=== PATIENT | male | born 1975 | race Caucasian/White ===

== ENCOUNTER 2016-12-10 08:08 | Emergency (ER) | payer MEDICAID ==
[~2016-12-10] VITALS: Ht 180.3 cm; Wt 76.0 kg
[~2016-12-10 08:08] MED LIST: Z.0.NO CURRENT MEDS
[2016-12-10 08:09] VITALS: BP 140/89; PULSE 61; RESP 16; TEMP 97.9; O2SAT 98
[2016-12-10] MEDS ORDERED: BUPR1SUB SL (08:23)
[2016-12-10 08:24] VITALS: BP 130/85; PULSE 60; RESP 16; O2SAT 99
[2016-12-10 08:46] VITALS: O2SAT 99
--- NOTE | 2016-12-10 09:04 | PD ---
HPI Chief Complaint: Abdominal Pain Time Seen by Provider: 08:54 Travel History International Travel<30 days: No Contact w/Intl Traveler<30days: No Traveled to known affect area: No History of Present Illness HPI This patient has had some bright red rectal bleeding for the last 2 days. He's had some intermittent abdominal cramping for the last one month. Denies vomiting or diarrhea or fever. No abdominal surgeries or history of medical problems. No alleviating factors. He is currently not having pain now. When he had pain was in the epigastric region. Symptoms severity is moderate PFSH Past Medical History Diminished Hearing: No Hepatitis: Yes (HEP C AND HPV) Musculoskeletal: Yes (HX CHRONIC BACK PAIN FROM [place]) Tetanus Vaccination: < 5 Years Influenza Vaccination: No Past Surgical History Ear Surgery: Yes (TUBES IN CHILDHOOD) Social History Alcohol Use: No Tobacco Use: No Substance Use: Yes (IV DRUGS, CRACK) Allergies-Medications (Allergen,Severity, Reaction): Coded Allergies: Bactrim (Verified Allergy, Mild, 12/10/16) Biaxin (Verified Allergy, Mild, 12/10/16) Penicillin (Verified Allergy, Mild, 12/10/16) Reported Meds & Prescriptions Reported Meds & Active Scripts Active Reported Zubsolv (Buprenorphine-Naloxone) 5.7-1.4 Mg Subl 1 Tab SL BID Review of Systems General / Constitutional: No: Fever Eyes: No: Visual changes HENT: No: Headaches Cardiovascular: No: Chest Pain or Discomfort Respiratory: No: Shortness of Breath Gastrointestinal: Positive: Abdominal Pain, Hematochezia Genitourinary: No: Dysuria Musculoskeletal: No: Pain Skin: No Rash Neurologic: No: Weakness Psychiatric: No: Depression Endocrine: No: Polydipsia Hematologic/Lymphatic: No: Easy Bruising Physical Exam Narrative GENERAL: Well-nourished, well-developed patient in no apparent distress. SKIN: Focused skin assessment reveals no rash and nodules. Skin is Warm and dry. HEAD: Atraumatic. Normocephalic. EYES: Pupils equal and round. No scleral icterus. No injection or drainage. ENT: No nasal bleeding or discharge. Mucous membranes pink and moist. NECK: Trachea midline. No JVD. CARDIOVASCULAR: Regular rate and rhythm. No murmur appreciated. RESPIRATORY: No accessory muscle use. Clear to auscultation. Breath sounds equal bilaterally. GASTROINTESTINAL: Abdomen soft, non-tender, nondistended. Hepatic and splenic margins not palpable. MUSCULOSKELETAL: No obvious deformities. No clubbing. No cyanosis. No edema. NEUROLOGICAL: Awake and alert. No obvious cranial nerve deficits. Motor grossly within normal limits. Normal speech. PSYCHIATRIC: Appropriate mood and affect; insight and judgment normal. Data Data Last Documented VS Vital Signs Date Time Temp Pulse Resp B/P Pulse Ox O2 Delivery O2 Flow Rate FiO2 12/10/16 08:46 99 Room Air 12/10/16 08:24 60 16 130/85 12/10/16 08:09 97.9 Orders Urinalysis - C+S If Indicated (12/10/16 08:35) Iv Access Insert/Monitor (12/10/16 08:35) Oxygen Administration (12/10/16 08:35) Oximetry (12/10/16 08:35) Lipase (12/10/16 08:35) Complete Blood Count With Diff (12/10/16 08:35) Comprehensive Metabolic Panel (12/10/16 08:35) Prothrombin Time / Inr (Pt) (12/10/16 08:35) Act Partial Throm Time (Ptt) (12/10/16 08:35) Ecg Monitoring (12/10/16 08:35) Type And Screen (12/10/16 08:35) Labs Laboratory Tests Test 12/10/16 08:45 White Blood Count 6.5 TH/MM3 Red Blood Count 4.89 MIL/MM3 Hemoglobin 14.8 GM/DL Hematocrit 42.8 % Mean Corpuscular Volume 87.6 FL Mean Corpuscular Hemoglobin 30.2 PG Mean Corpuscular Hemoglobin 34.5 % Concent Red Cell Distribution Width 13.4 % Platelet Count 237 TH/MM3 Mean Platelet Volume 7.7 FL Neutrophils (%) (Auto) 64.4 % Lymphocytes (%) (Auto) 22.5 % Monocytes (%) (Auto) 10.3 % Eosinophils (%) (Auto) 1.7 % Basophils (%) (Auto) 1.1 % Neutrophils # (Auto) 4.2 TH/MM3 Lymphocytes # (Auto) 1.5 TH/MM3 Monocytes # (Auto) 0.7 TH/MM3 Eosinophils # (Auto) 0.1 TH/MM3 Basophils # (Auto) 0.1 TH/MM3 CBC Comment DIFF FINAL Differential Comment Prothrombin Time 10.7 SEC Prothromb Time International 1.0 RATIO Ratio Activated Partial 25.5 SEC Thromboplast Time Urine Color YELLOW Urine Turbidity CLEAR Urine pH 6.0 Urine Specific [place] 1.031 Urine Protein TRACE mg/dL Urine Glucose (UA) NEG mg/dL Urine Ketones NEG mg/dL Urine Occult Blood NEG Urine Nitrite NEG Urine Bilirubin NEG Urine Urobilinogen 2.0 MG/DL Urine Leukocyte Esterase NEG Urine WBC LESS THAN 1 /hpf Microscopic Urinalysis Comment CULT NOT INDICATED Sodium Level 138 MEQ/L Potassium Level 4.3 MEQ/L Chloride Level 105 MEQ/L Carbon Dioxide Level 26.8 MEQ/L Anion Gap 6 MEQ/L Blood Urea Nitrogen 23 MG/DL Creatinine 0.68 MG/DL Estimat Glomerular Filtration 130 ML/MIN Rate Random Glucose 98 MG/DL Calcium Level 8.7 MG/DL Total Bilirubin 0.4 MG/DL Aspartate Amino Transf 150 U/L (AST/SGOT) Alanine Aminotransferase 272 U/L (ALT/SGPT) Alkaline Phosphatase 54 U/L Total Protein 7.1 GM/DL Albumin 3.5 GM/DL Lipase 160 U/L Blood Type O POSITIVE Antibody Screen NEGATIVE Blood Bank Comment MDM Medical Decision Making Medical Screen Exam Complete: Yes Emergency Medical Condition: Yes Medical Record Reviewed: Yes Differential Diagnosis Internal hemorrhoid, colitis, irritable bowel syndrome Narrative Course I have reviewed the patient's electronic medical record. IV placed CBC is normal with hemoglobin of 14.8 Metabolic profile is normal Type and screen was done Coagulation studies are normal Abdomen is soft and benign and nontender. His vital signs and exam are normal He did have some bright red rectal bleeding but stable for outpatient GI follow- up We discussed colonoscopy Diagnosis Primary Impression: Hematochezia Additional Impression: Abdominal pain Qualified Code: R10.13 - Epigastric pain Disposition: 01 DISCHARGE HOME Condition: Stable Haile Humphrey MD Dec 10, 2016 09:04
[2016-12-10 09:14] LABS: BLOOD, URINE NEG (NEG); GLUCOSE,URINE NEG (NEG); KETONE, URINE NEG (NEG); NITRITE,URINE NEG (NEG); URINE COLOR YELLOW (YELLW/STRAW)
[2016-12-10 09:17] LABS: AUTOMATED NEUTROPHIL # 4.2 TH/MM3 (1.8-7.7); BASOPHIL # 0.1 TH/MM3 (0-0.2); BASOPHIL % 1.1 % (0.0-2.0); EOSINOPHIL # 0.1 TH/MM3 (0-0.4); EOSINOPHIL % 1.7 % (0.0-4.0); HEMATOCRIT 42.8 % (39.0-51.0); HEMO FLAGS DIFF FINAL; LYMPH % 22.5 % (9.0-44.0); LYMPHOCYTE # 1.5 TH/MM3 (1.0-4.8); MEAN CELL VOLUME 87.6 FL (80.0-100.0); MEAN CORPUSCULAR HEMOGLOBIN 30.2 PG (27.0-34.0); MEAN CORPUSCULAR HGB CONC 34.5 % (32.0-36.0); MONO % 10.3 % (0.0-8.0); NEUT % 64.4 % (16.0-70.0); PLATELET COUNT 237 TH/MM3 (150-450); RED BLOOD COUNT 4.89 MIL/MM3 (4.50-5.90); RED CELL DISTRIBUTION WIDTH 13.4 % (11.6-17.2); WHITE BLOOD COUNT 6.5 TH/MM3 (4.0-11.0)
[2016-12-10 09:19] LABS: COMMENT (UR) CULT NOT INDICATED; CULTURE IF INDICATED CULT NOT INDICATED
[2016-12-10 09:27] LABS: APTT (PATIENT) 25.5 SEC (24.3-30.1); PROTHROMBIN TIME - PATIENT 10.7 SEC (9.8-11.6)
[2016-12-10 09:34] LABS: ALKALINE PHOSPHATASE 54 U/L (45-117); ALT (GPT) 272 U/L (12-78); ANION GAP 6 MEQ/L (5-15); AST (GOT) 150 U/L (15-37); BICARBONATE 26.8 MEQ/L (21.0-32.0); BLOOD UREA NITROGEN 23 MG/DL (7-18); CHLORIDE 105 MEQ/L (98-107); GLOMERULAR FILTRATION RATE 130 ML/MIN (>89); POTASSIUM 4.3 MEQ/L (3.5-5.1); SODIUM (NA) 138 MEQ/L (136-145); TOTAL BILIRUBIN ADULT 0.4 MG/DL (0.2-1.0)
[2016-12-10 11:56] VITALS: BP 124/78
== END 2016-12-10 11:57 | disposition home or self-care (01) ==
LOC: NEPE 08:08
DX: K92.1 Melena (principal); R10.13 Epigastric pain
CPT/HCPCS: 80053; 81001; 83690; 85025; 85610; 85730; 86850; 86900; 86901; 99283

== ENCOUNTER 2017-03-03 15:39 | Emergency (ER) | payer MEDICAID ==
[~2017-03-03 15:39] MED LIST changes: +BUPR1SUB SL; -Z.0.NO CURRENT MEDS
[2017-03-03 15:41] VITALS: BP 174/96; PULSE 66; RESP 20; TEMP 98; O2SAT 98
--- NOTE | 2017-03-03 16:02 | PD ---
Physical Exam Time Seen by Provider: 16:01 Narrative 41 year old male who is right handed presents to ED for evaluation of nail stuck in Left hand. Happened at home approximately 40 minutes ago. Severe pain. Up to date on tetanus Data Data Last Documented VS Vital Signs Date Time Temp Pulse Resp B/P (MAP) Pulse Ox O2 Delivery O2 Flow Rate FiO2 03/03/17 18:44 64 16 132/75 (94) 99 03/03/17 15:41 98.0 Room Air Orders Orders Hand, Complete ([id number]) (03/03/17 ) Iv Access Insert/Monitor (03/03/17 17:00) Morphine Inj (Morphine Inj) (03/03/17 17:00) Lidocaine 1% Inj (50 Ml) (Xylocaine 1% I (03/03/17 17:00) Clindamycin Inj (Cleocin Inj) (03/03/17 17:15) Ondansetron Inj (Zofran Inj) (03/03/17 17:30) Ondansetron Inj (Zofran Inj) (03/03/17 17:25) Acetamin-Hydrocod 325-5 Mg ([place] 5-325 (03/03/17 18:30) Wound Care (03/03/17 18:22) MDM Medical Record Reviewed: Yes Supervised Visit with TRACE: No Scripts Mupirocin Topical (Bactroban Topical) 22 Gm Cream 1 APPLIC TOPICAL TID for Mgmt Bacterial Infection for 7 Days, #1 TUBE 0 Refills Prov: Syeda Walter MD 03/03/17 Ibuprofen (Ibuprofen) 800 Mg Tab 800 MG PO Q8H Y for Pain/Inflammation, #21 TAB 0 Refills Prov: Syeda Walter MD 03/03/17 Clindamycin (Clindamycin) 150 Mg Cap 450 MG PO Q6H for Infection for 10 Days, #120 CAP 0 Refills Prov: Syeda Walter MD 03/03/17 Condition: Stable Aida Callaway Mar 03, 2017 16:02
--- NOTE | 2017-03-03 16:15 | RADRPT ---
EXAM DATE/TIME: 03/03/2017 16:19 [place] COMPARISON: No previous studies available for comparison. INDICATIONS : Left hand pain. Patient shot a nail into palm of hand. MEDICAL HISTORY : None. SURGICAL HISTORY : None. ENCOUNTER: Initial ACUITY: 1 day PAIN SCORE: 10/10 LOCATION: Left hand. FINDINGS: There is a nail in the palm of the hand confined to the soft tissues. There is no evidence of acute f racture. CONCLUSION: 1. Foreign body in the soft tissues Richard Rodriguez MD on March 03, 2017 at 16:13 Board Certified Radiologist. This report was verified electronically.
[2017-03-03] MEDS ORDERED: MORPHINE SULFATE 4 MG/ML INJ IV PUSH ONE (17:00)
[2017-03-03] MEDS ORDERED: LIDOCAINE HCL 1% 50 ML VIAL INFIL ONE (17:00)
[2017-03-03] MEDS ORDERED: CLINDAMYCIN INJ 900 MG in SODIUM CHLORIDE 0.9% INJ 100 ML IV ONE (17:15)
[2017-03-03] MEDS ORDERED: ONDANSETRON HCL 4 MG/2 ML VIAL ONE (17:25)
[2017-03-03] MEDS ORDERED: ONDANSETRON HCL 4 MG/2 ML VIAL IV PUSH ONE (17:30)
[2017-03-03] MEDS ORDERED: MUPI2%T TOPICAL (18:22)
[2017-03-03] MEDS ORDERED: IBUP800T23 PO (18:22)
[2017-03-03] MEDS ORDERED: CLIN1CAP5 PO (18:22)
[2017-03-03] MEDS ORDERED: ACETAMINOPHEN/HYDROcodone 325 MG/5 MG TAB PO ONE (18:30)
--- NOTE | 2017-03-03 18:30 | PD ---
HPI Chief Complaint: Injury Time Seen by Provider: 17:03 Travel History International Travel<30 days: No Contact w/Intl Traveler<30days: No History of Present Illness HPI 41-year-old right-hand dominant male presents to the ED for evaluation of injury to the left hand. Patient states that he was working with a nail gun approximately 40 minutes prior to arrival when a nail punctured his left palm. He came immediately to the ED. He endorses pain with attempted range of motion , denies numbness, tingling, weakness. He states his last tetanus shot was 2 years ago. States the nail is 1-1/4 inch, made of aluminum with no coating. 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) Allergies-Medications (Allergen,Severity, Reaction): Coded Allergies: clarithromycin (Verified Allergy, Mild, 03/03/17) penicillin G (Verified Allergy, Mild, 03/03/17) sulfamethoxazole (Verified Allergy, Mild, 03/03/17) trimethoprim (Verified Allergy, Mild, 03/03/17) Reported Meds & Prescriptions Reported Meds & Active Scripts Active Bactroban Topical (Mupirocin) 22 Gm Cream 1 Applic TOPICAL TID 7 Days Ibuprofen 800 Mg Tab 800 Mg PO Q8H PRN Clindamycin (Clindamycin HCl) 150 Mg Cap 450 Mg PO Q6H 10 Days Review of Systems Except as stated in HPI: all other systems reviewed are Neg Physical Exam Narrative GENERAL: Well-nourished, well-developed white male in no acute distress. SKIN: Focused skin assessment warm/dry. The head of the nail is visible, embedded in the thenar eminence of the left hand. HEAD: Normocephalic. EYES: No scleral icterus. No injection or drainage. NECK: Supple, trachea midline. No JVD or lymphadenopathy. CARDIOVASCULAR: Regular rate and rhythm without murmurs, gallops, or rubs. RESPIRATORY: Breath sounds equal bilaterally. No accessory muscle use. GASTROINTESTINAL: Abdomen soft, non-tender, nondistended. MUSCULOSKELETAL: No cyanosis, or edema. FOCUSED LEFT UPPER EXTREMITY EXAM: 2+ radial pulse. Sensation intact to light touch distally on each digit. Cap refill less than 2 seconds on each digit. Patient is able to wiggle her fingers. Full range of motion testing deferred until the foreign body is removed. BACK: Nontender without obvious deformity. No CVA tenderness. Data Data Last Documented VS Vital Signs Date Time Temp Pulse Resp B/P (MAP) Pulse Ox O2 Delivery O2 Flow Rate FiO2 03/03/17 18:44 64 16 132/75 (94) 99 03/03/17 15:41 98.0 Room Air Orders Orders Hand, Complete ([id number]) (03/03/17 ) Iv Access Insert/Monitor (03/03/17 17:00) Morphine Inj (Morphine Inj) (03/03/17 17:00) Lidocaine 1% Inj (50 Ml) (Xylocaine 1% I (03/03/17 17:00) Clindamycin Inj (Cleocin Inj) (03/03/17 17:15) Ondansetron Inj (Zofran Inj) (03/03/17 17:30) Ondansetron Inj (Zofran Inj) (03/03/17 17:25) Acetamin-Hydrocod 325-5 Mg ([place] 5-325 (03/03/17 18:30) Wound Care (03/03/17 18:22) MDM Medical Decision Making Medical Screen Exam Complete: Yes Emergency Medical Condition: Yes Differential Diagnosis Puncture wound versus retained foreign body versus need for tetanus immunization versus other Narrative Course 41-year-old right-hand dominant male presents to the ED for evaluation of injury to the left hand. Patient states that he was working with a nail gun approximately 40 minutes prior to arrival when a nail punctured his left palm. He came immediately to the ED. He endorses pain with attempted range of motion , denies numbness, tingling, weakness. He states his last tetanus shot was 2 years ago. States the nail is 1-1/4 inch, made of aluminum with no coating. Vitals reviewed. Physical exam reveals the head of a nail is embedded in the thenar eminence of the left hand. Neurovascularly intact on initial exam. X- rays reveal a single foreign body. IV was established. Patient was administered 900 mg clindamycin, 4 mg morphine, 4 mg Zofran IV. Foreign body removal was performed. Please see my procedure note for details. Patient was prescribed 450 mg clindamycin 4 times a day, mupirocin ointment and 800 mg ibuprofen. I discussed proper wound care and reasons to return to the ED. He is to follow-up with the hand surgeon in 48 hours. If he is unable to see the hand surgeon he is instructed to report back to the ED for wound recheck. Patient again understanding of instructions and is agreeable to the care plan. He is stable and discharged home. Procedures Procedure Narrative FOREIGN BODY REMOVAL LOCATION: Left palm FB: single daquan nail REPAIR: The area of the laceration was prepped with Betadine and sterilely draped. The laceration was infiltrated with 1% lidocaine. A hemostat was used to grasp the nail and traction was applied. The nail was removed without further damage to the hand. The wound was copiously irrigated and explored without evidence of foreign body, tendon injury or neurovascular injury. Range of motion testing reveals that the patient is able to flex and extend all the digits. He has strong finger to thumb opposition on each digit. A sterile dressing was applied. The patient was advised to keep the dressing clean and dry. Patient tolerated the procedure well. Diagnosis Primary Impression: Puncture wound with foreign body of left hand, initial encounter Referrals: Emma Anderson MD Patient Instructions: Acute Wound Care (GEN), General Instructions, Puncture Wound (ED) Additional Instructions: Rest, hydrate. Keep the wound clean, dry and covered. Change the dressing anytime it becomes wet or swelling. Wash hands before handling the wound. Take all the antibiotics as prescribed, even if your symptoms resolve. Topical Bactroban any time the dressing is changed. Follow up with a hand surgeon in 24-48 hours. If you are unable to follow-up with the hand surgeon in 24-48 hours, return to the ED to allow us to reevaluate the wound. If the wound should ooze pus, become red, warm, increased pain, or fevers occur return to the emergency room IMMEDIATELY. Return to the ED for any urgent or emergent medical condition. Med/Other Pt SpecificInfo: Prescription(s) given Scripts Mupirocin Topical (Bactroban Topical) 22 Gm Cream 1 APPLIC TOPICAL TID for Mgmt Bacterial Infection for 7 Days, #1 TUBE 0 Refills Prov: Syeda Walter MD 03/03/17 Ibuprofen (Ibuprofen) 800 Mg Tab 800 MG PO Q8H Y for Pain/Inflammation, #21 TAB 0 Refills Prov: Syeda Walter MD 03/03/17 Clindamycin (Clindamycin) 150 Mg Cap 450 MG PO Q6H for Infection for 10 Days, #120 CAP 0 Refills Prov: Syeda Walter MD 03/03/17 Disposition: 01 DISCHARGE HOME Condition: Stable Guera Painter Mar 03, 2017 18:30
[2017-03-03 18:44] VITALS: BP 132/75
== END 2017-03-03 19:00 | disposition home or self-care (01) ==
LOC: NEPD 15:39
DX: S61.442A Puncture wound with foreign body of left hand, initial encounter (principal); W45.0XXA Nail entering through skin, initial encounter; W29.4XXA Contact with nail gun, initial encounter; Y93.H3 Activity, building and construction; Y92.009 Unspecified place in unspecified non-institutional (private) residence as the place of occurrence of the external cause
CPT/HCPCS: 73130; 96365; 96375; 99284; J2270; J2405